=== PATIENT | male | born 1955 | race Caucasian/White ===

== ENCOUNTER 2022-06-17 15:09 | Emergency (ER) | payer MEDICARE, OTHER ==
[2022-06-17] MEDS: Diphtheria,Pertussis(Acell),Tetanus Vaccine 0.5 ML Syringe IM ONE (16:16)
[2022-06-17] MEDS: Lidocaine 1% 10 ML MDV INJECT ONE (16:18)
[2022-06-17] MEDS: Bupivacaine 0.5% 10 ML SDV INJECT ONE (16:18)
== END 2022-06-17 17:46 | disposition home or self-care (01) ==
LOC: JD.ED 15:09
DX: S61.210A Laceration without foreign body of right index finger without damage to nail, initial encounter (principal); E78.00 Pure hypercholesterolemia, unspecified; I10 Essential (primary) hypertension; Z23 Encounter for immunization; W26.8XXA Contact with other sharp object(s), not elsewhere classified, initial encounter; Y99.0 Civilian activity done for income or pay
CPT/HCPCS: 12002; 73140; 90471; 90715; 99283; J3490